=== PATIENT | female | born 1975 | race Caucasian/White ===

== ENCOUNTER → 2017-07-31 | Outpatient (REF) | payer BC ==
[2017-07-31 15:21] LABS: FERRITIN 57 NG/ML (8-252)
[2017-07-31 15:24] LABS: VITAMIN B12 LEVEL 407 PG/ML (247-911)
[2017-08-08 00:08] LABS: Lyme Disease IgG/IgM Antibodie <0.91 ISR (0.00-0.90); Lyme Disease IgM Ab Quantitati <0.80 index (0.00-0.79); SJOGREN'S ANTI SS-A <0.2 AI (0.0-0.9); SJOGREN'S ANTI SS-B 2.4 AI (0.0-0.9)
== END ==
LOC: M LABNEURO 09:01
PROVIDERS: ATTEND Psychiatry & Neurology Neurology
DX: G62.9 Polyneuropathy, unspecified (principal); E11.9 Type 2 diabetes mellitus without complications

== ENCOUNTER → 2018-06-18 | Outpatient (CLI) | payer BC ==
[2018-06-18 14:48] LABS: TOTAL 25(OH) VITAMIN D 27.9 NG/ML (30.0-100.0)
[2018-06-18 16:47] LABS: ALBUMIN 3.6 GM/DL (3.2-5.2); ALBUMIN/GLOBULIN RATIO 0.97 (1.00-1.93); ALKALINE PHOSPHATASE 128 U/L (45-117); ALT/SGPT 41 U/L (12-78); ANION GAP 11 MEQ/L (8-16); AST/SGOT 22 U/L (7-37); BILIRUBIN,TOTAL 0.3 MG/DL (0.2-1.0); BLOOD UREA NITROGEN 12 MG/DL (7-18); CARBON DIOXIDE LEVEL 22 MEQ/L (21-32); CHLORIDE LEVEL 107 MEQ/L (98-107); CHOLESTEROL LEVEL 221 MG/DL (<200); CHOLESTEROL RISK RATIO 6.696 (<5); CREATININE FOR GFR 0.85 MG/DL (0.55-1.30); GLOMERULAR FILTRATION RATE > 60.0 (>58); GLUCOSE, FASTING 113 MG/DL (70-100); HDL CHOLESTEROL 33 MG/DL (>40); LDL CHOLESTEROL 119.8 MG/DL (<100); MAGNESIUM LEVEL 2.4 MG/DL (1.8-2.4); NON-HDL-C 188 MG/DL; POTASSIUM SERUM 4.7 MEQ/L (3.5-5.1); SODIUM LEVEL 140 MEQ/L (136-145); THYROID STIMULATING HORMONE 0.726 uIU/ML (0.358-3.740); TOTAL PROTEIN 7.3 GM/DL (6.4-8.2); TRIGLYCERIDES LEVEL 341 MG/DL (<150)
== END ==
LOC: M LRY 09:42
DX: I49.3 Ventricular premature depolarization (principal); E55.9 Vitamin D deficiency, unspecified; E78.2 Mixed hyperlipidemia
CPT/HCPCS: 83735

== ENCOUNTER → 2018-12-16 | Outpatient (CLI) | payer BC ==
--- NOTE | 2018-12-16 13:52 | PFTRPT ---
Height: 65.00 Inches Weight: 280.00 Lbs BSA: 2.28 Diagnosis: R06.02 DATE OF PROCEDURE: 12/16/2018 ORDERED BY: Dr. Benz Spirometry: Study of excellent technical quality. Forced vital capacity normal. FEV1 in proportion. Obstructive index is, therefore, normal. Flow Volume Loop: Expiratory limb of the flow volume loop is normal. No significant bronchodilator response identified. Lung Volumes: Total lung capacity normal. Residual volume is in proportion. Diffusing Capacity: Diffusing capacity is borderline. Hemoglobin: Hemoglobin is also borderline as well at 11.8. Airway Mechanics: Airway resistance and conductance are normal. IMPRESSION: Minimal reduction in diffusing capacity, probably on the basis of mild anemia as it is appropriate for alveolar volume. Please correlate clinically. MTDD
== END ==
LOC: M CARPUL 12:03
PROVIDERS: ATTEND Internal Medicine Pulmonary Disease
DX: R06.02 Shortness of breath (principal)

== ENCOUNTER → 2020-11-15 | Outpatient (CLI) | payer SELFPAY | LOC: M LABSMTC 12:31 | PROVIDERS: ATTEND Pediatrics | DX: Z20.822 Contact with and (suspected) exposure to COVID-19 (principal) ==

== ENCOUNTER → 2020-11-22 | Outpatient (CLI) | payer SELFPAY | LOC: M LABSMTC 12:01 | PROVIDERS: ATTEND Pediatrics | DX: Z20.822 Contact with and (suspected) exposure to COVID-19 (principal) ==

== ENCOUNTER → 2020-12-07 | Outpatient (CLI) | payer SELFPAY | LOC: M LABSMTC 13:01 | PROVIDERS: ATTEND Pediatrics | DX: Z20.828 Contact with and (suspected) exposure to other viral communicable diseases (principal) ==

== ENCOUNTER → 2021-01-07 | Outpatient (CLI) | payer SELFPAY | LOC: M LABSMTC 11:20 | PROVIDERS: ATTEND Pediatrics | DX: Z20.822 Contact with and (suspected) exposure to COVID-19 (principal) ==

== ENCOUNTER → 2022-01-16 | Outpatient (CLI) | payer BC | LOC: M SOG 13:42 | PROVIDERS: ATTEND Orthopaedic Surgery | DX: M47.816 Spondylosis without myelopathy or radiculopathy, lumbar region (principal) ==